=== PATIENT | female | born 1975 | race Hispanic/Latino ===

== ENCOUNTER 2024-05-16 09:39 | Emergency (ER) | payer OTHER ==
[~2024-05-16] VITALS: Ht 157.5 cm; Wt 90.7 kg
[2024-05-16 09:55] VITALS: PULSE 86; RESP 16; TEMP 97.6; O2SAT 100
[2024-05-16] MEDS ORDERED: NAPROXEN250 MG PO (11:32)
[2024-05-16 13:23] VITALS: BP 128/72; PULSE 72; RESP 16
== END 2024-05-16 11:35 | disposition home or self-care (01) ==
LOC: ER 10:08
DX: M25.512 Pain in left shoulder (principal); S40.212A Abrasion of left shoulder, initial encounter; V43.53XA Car driver injured in collision with pick-up truck in traffic accident, initial encounter; Y92.488 Other paved roadways as the place of occurrence of the external cause; M06.9 Rheumatoid arthritis, unspecified
CPT/HCPCS: 99283